=== PATIENT | male | born 1960 | race Caucasian/White ===

== ENCOUNTER 2016-12-20 04:54 | Inpatient (IN) ==
[2016-12-13 19:04] LABS: Appearance,Urine CLEAR; Bilirubin,Urine NEG (NEG); Color,Urine STRAW; Glucose,Urine (UA) NEGATIVE (NEG); Leukocyte Esterase,Urine NEG /uL (NEG); Nitrate,Urine NEG (NEG); Protein,Urine NEG (NEG); Specific Gravity,Urine 1.006 (1.000-1.035); Urine Blood NEG mg/dL (<0.03); Urobilinogen,Urine NEG (NEG)
[2016-12-13 19:06] LABS: Basophils # (Auto) 0.1 K/mcL (0.0-0.3); Basophils % (Auto) 0.8 % (0.0-2.0); Eosinophils # (Auto) 0.1 K/mcL (0.0-0.7); Eosinophils % (Auto) 1.6 % (0.0-7.0); Granulocytes % (Auto) 68.9 % (38.0-78.0); Lymphocytes # (Auto) 1.6 K/mcL (1.5-4.8); Mean Cell Volume 89.7 fL (80.0-100.0); Mean Corpuscular HGB Conc 32.5 g/dL (31.0-36.0); Mean Corpuscular Hemoglobin 29.1 pg (26.0-34.0); Monocytes # (Auto) 0.3 K/mcL (0.1-0.9); Monocytes % (Auto) 4.7 % (1.0-12.0); Platelet Count 245 K/mcL (140-440); RBC 4.93 M/mcL (4.50-5.90); Red Cell Distribution Width 12.9 % (11.5-14.5)
[2016-12-13 19:24] LABS: Blood Urea Nitrogen 15 mg/dl (6-20)
[2016-12-20] MEDS ORDERED: ceFAZolin 1 GM VIAL IV SCH (06:00)
[2016-12-20] MEDS ORDERED: oxyCODONE 10 MG TAB.ER.12H PO SCH (06:00)
[2016-12-20] MEDS ORDERED: ACETAMINOPHEN 500 MG TABLET PO SCH (06:00)
[2016-12-20] MEDS ORDERED: CELECOXIB 200 MG CAPSULE PO SCH (06:00)
[2016-12-20] MEDS ORDERED: PREGABALIN 150 MG CAPSULE PO SCH (06:00)
[2016-12-20] MEDS ORDERED: ONDANSETRON 4 MG/2 ML VIAL IV ONE (07:25)
[2016-12-20] MEDS ORDERED: MIDAZOLAM 5 MG/5 ML VIAL IV ONE (07:25)
[2016-12-20] MEDS ORDERED: LIDOCAINE HCL/PF 100 MG/5 ML SYRINGE IV ONE (07:25)
[2016-12-20] MEDS ORDERED: fentaNYL 100 MCG/2 ML VIAL IV ONE (07:25)
[2016-12-20] MEDS ORDERED: PROPOFOL 200 MG/20 ML VIAL IV ONE (07:25)
[2016-12-20] MEDS ORDERED: ROPIVACAINE HCL/PF 30 ML VIAL IJ ONE (07:25)
[2016-12-20] MEDS ORDERED: DEXAMETHASONE 10 MG/ML VIAL IV ONE (07:25)
[2016-12-20] MEDS ORDERED: TRANEXAMIC ACID 1,000 MG/10 ML VIAL IV ONE (07:25)
[2016-12-20] MEDS ORDERED: GENTAMICIN SULFATE 800 MG/20 ML VIAL IR ONE (07:48)
[2016-12-20] MEDS ORDERED: KETOROLAC 30 MG, ROPIVACAINE HCL/PF 49.5 ML, EPINEPHrine 0.5 MG, 0.9 % SODIUM CHLORIDE ... IJ ONE (08:00)
[2016-12-20] MEDS ORDERED: METOPROLOL TARTRATE 5 MG/5 ML VIAL IV PRN (08:56)
[2016-12-20] MEDS ORDERED: NALOXONE HCL 0.4 MG/ML VIAL IV PRN (08:56)
[2016-12-20] MEDS ORDERED: BENZOCAINE/MENTHOL 1 LOZENGE PO PRN ×2 (08:56→09:23)
[2016-12-20] MEDS ORDERED: ePHEDrine 50 MG/ML AMPUL IV PRN (08:56)
[2016-12-20] MEDS ORDERED: diphenhydrAMINE 50 MG/ML VIAL IV PRN (08:56)
[2016-12-20] MEDS ORDERED: PROMETHAZINE 25 MG/ML VIAL IV PRN (08:56)
[2016-12-20] MEDS ORDERED: METHOCARBAMOL 1,000 MG/10 ML VIAL IV PRN (08:56)
[2016-12-20] MEDS ORDERED: ATROPINE SULFATE 0.4 MG/ML VIAL IV PRN (08:56)
[2016-12-20] MEDS ORDERED: IPRATROPIUM/ALBUTEROL 3 ML AMPUL.NEB NEB PRN (08:56)
[2016-12-20] MEDS ORDERED: FLUMAZENIL 0.1 MG/ML ML IV PRN (08:56)
[2016-12-20] MEDS ORDERED: ONDANSETRON 4 MG/2 ML VIAL IV PRN ×2 (08:56→09:23)
[2016-12-20] MEDS ORDERED: LACTATED RINGERS 1,000 ML IV SCH (09:00)
[2016-12-20] MEDS ORDERED: TEMAZEPAM 15 MG CAPSULE PO PRN (09:23)
[2016-12-20] MEDS ORDERED: MAGNESIUM HYDROXIDE 30 ML ORAL.SUSP PO PRN (09:23)
[2016-12-20] MEDS ORDERED: FLEETS ADULT ENEMA PR PRN (09:23)
[2016-12-20] MEDS ORDERED: ACETAMINOPHEN 325 MG TABLET PO PRN (09:23)
[2016-12-20] MEDS ORDERED: BISACODYL 10 MG SUPP.RECT PR PRN (09:23)
[2016-12-20] MEDS ORDERED: TRANEXAMIC ACID 1,000 MG/10 ML VIAL IV SCH (09:23)
[2016-12-20] MEDS ORDERED: POLYETHYLENE GLYCOL 3350 17 GM PACKET PO PRN (09:23)
[2016-12-20] MEDS ORDERED: SILDENAFIL CITRATE PO PRN (09:25)
[2016-12-20] MEDS ORDERED: HYDROcodone/APAP 10/325MG TABLET PO PRN (09:25)
[2016-12-20] MEDS ORDERED: CYCLOBENZAPRINE 10 MG TABLET PO PRN (09:25)
[2016-12-20] MEDS: fentaNYL 100 MCG/2 ML VIAL IV PRN ×4 (10:00→10:09)
[2016-12-20] MEDS: MEPERIDINE 25 MG/ML SYRINGE IV PRN ×2 (10:00→10:12)
[2016-12-20] MEDS: HYDROmorphone 2 MG/ML SYRINGE IV PRN ×10 (10:05→22:47)
--- NOTE | 2016-12-20 10:17 | Operative Note ---
DATE OF OPERATION: 12/20/2016 PREOPERATIVE DIAGNOSIS: Left knee degenerative arthritis. POSTOPERATIVE DIAGNOSIS: Left knee degenerative arthritis. PROCEDURE: Left total knee arthroplasty using the [employer] robot. SURGEON: Waldo Hill MD REVENUE INTEGRITY ANALYST: Jasmeet Raines PA-C ANESTHESIA: General LMA anesthesia. COMPLICATIONS: None. IMPLANTS: A size 6 femur and size 6 tibial baseplate, 9 mm poly insert, a 36 mm patellar button. The component was cemented and was a cruciate retained design. TOURNIQUET TIME: 1 hour and 16 minutes, which was 76 minutes. ESTIMATED BLOOD LOSS: Minimal. DESCRIPTION OF PROCEDURE: The patient was brought to the operating room and put to sleep with general LMA anesthesia. Once asleep, the patient had the left leg sterilely prepped and draped in the usual sterile fashion. We placed Ioban over the skin. Preop antibiotics and tranexamic acid had been given. Once the left leg had been confirmed as the operative site, we placed two pins above and below the operative site, and made a midline incision, a mid vastus approach. With this we inspected the total joint and this seemed to reveal severe arthritis medial lateral and patellofemoral joint with bone exposed in all three compartments. Once this was done, we then registered the center of hip rotation, medial and lateral malleolus. We registered 30 points on the femur and the tibia and intraarticular pins. We then balanced the knee with varus and valgus stress at 15 degrees and at 95 degrees. This seemed to balance the knee very well. We balanced the gaps and then sized the components. Once this was done, the robot was brought in and made our distal femoral cut, made our posterior chamfer cuts. We then made our anterior cuts which included anterior and posterior cuts and anterior chamfer cut. Once this was done, we then made our tibial cut using the robot, registered the robot and removed the bony fragments. Once the robot was removed from the operative field, we then placed the implants. These were tapped into place at the rotation of the tibial baseplate and this was a little too tight laterally. We then took off a little more bone medial and 1 mm bone lateral to restore 0 degrees of angulation. Once this confirmed the alignment, this revealed a well aligned leg. This balanced both in flexion and extension. We irrigated thoroughly. We then prepared the patella which measured 24 mm. This was cut to 14 and then cemented into place a 36 mm patellar button. We cemented in size 6 femur and size 6 tibial baseplate and a 9 mm poly. Excess cement was removed and the knee was kept at 45 degrees of angulation. We irrigated thoroughly once the tourniquet had been deflated at 76 minutes. We then controlled bleeding, closed the mid vastus approach with #2 FiberWire and a #1 double-armed Maxon. We closed the skin with 2-0 Vicryl and adhesive closure. The patient tolerated this well. GISSELLE:brett Job ID: [id number] Doc ID: [id number] Waldo Hill MD
--- NOTE | 2016-12-20 10:24 | XRay Report ---
CLINICAL INFORMATION: Reason for Exam:Post-Op Total Knee COMPARISON: None. FINDINGS: Total knee prostheses is anatomically aligned. No osseous abnormalities. Soft tissue swelling seen as expected IMPRESSION: Negative Interpreted and Authenticated by: Jose Amanda 12/20/16
[2016-12-20] MEDS: 0.45 % SODIUM CHLORIDE 1,000 ML IV SCH ×3 (11:00→18:25)
[2016-12-20] MEDS: KETOROLAC 15 MG/ML VIAL IV SCH ×2 (12:19→17:24)
[2016-12-20] MEDS: 0.9 % SODIUM CHLORIDE 10 ML SYRINGE IV SCH ×2 (12:57→21:29)
[2016-12-20] MEDS: HYDROcodone/APAP 10/325MG TABLET PO PRN ×2 (17:30→22:55)
[2016-12-20] MEDS: ceFAZolin 1 GM VIAL IV SCH (17:31)
[2016-12-20] MEDS ORDERED: ZOLPIDEM 10 MG TABLET PO PRN (21:00)
[2016-12-20] MEDS ORDERED: SENNOSIDES 1 TABLET PO SCH (21:00)
[2016-12-20] MEDS ORDERED: PANTOPRAZOLE 40 MG TABLET PO SCH (21:00)
[2016-12-20] MEDS ORDERED: traZODone HCL 50 MG TABLET PO PRN (21:00)
[2016-12-20] MEDS: DOCUSATE SODIUM 100 MG CAPSULE PO SCH (21:27)
[2016-12-20] MEDS: ASPIRIN 325 MG ENTERIC COATED TABLET PO SCH (21:27)
[2016-12-20] MEDS: oxyCODONE 10 MG TAB.ER.12H PO SCH (21:27)
[2016-12-20] MEDS: DOXYCYCLINE HYCLATE 100 MG TABLET.ORL PO SCH (21:29)
[2016-12-20] MEDS ORDERED: ceFAZolin 1 GM VIAL ONE (23:38)
[2016-12-21] MEDS: KETOROLAC 15 MG/ML VIAL IV SCH ×3 (00:03→11:11)
[2016-12-21] MEDS: ceFAZolin 1 GM VIAL IV SCH (00:04)
[2016-12-21] MEDS: 0.45 % SODIUM CHLORIDE 1,000 ML IV SCH ×2 (03:14→09:34)
[2016-12-21] MEDS: HYDROcodone/APAP 10/325MG TABLET PO PRN ×4 (03:14→15:29)
[2016-12-21] MEDS: 0.9 % SODIUM CHLORIDE 10 ML SYRINGE IV SCH ×2 (05:37→15:57)
[2016-12-21] MEDS ORDERED: diphenhydrAMINE 25 MG CAPSULE PO PRN ×2 (06:50→07:30)
--- NOTE | 2016-12-21 07:44 | Orthopedic Progress Note ---
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 Chief Complaint: [Pt is stable this morning on post operative day 1 without any significant concerns or complaints. Patients vital signs have remained stable. Patients dressing is dry and exhibits a grossly intact neurovascular and neuromotor exam. Patients 10 point ROS is otherwise negative. ] Objective Vital signs: Vital Signs Temp Pulse Pulse Resp BP BP Pulse Ox 12/21/16 07:41 97 12/21/16 03:20 98.2 F 79 16 122/69 97 12/21/16 02:55 98.2 F 78 12 119/70 96 12/21/16 02:54 96 12/20/16 23:40 95 12/20/16 23:39 99.0 F 93 H 12 108/63 95 12/20/16 21:00 94 12/20/16 20:00 98.8 F 81 12 118/64 94 12/20/16 17:00 98.1 F 91 H 16 112/70 98 12/20/16 15:55 70 94 12/20/16 13:30 98.8 F 78 18 105/62 2 L 12/20/16 12:30 75 16 119/76 96 12/20/16 12:00 97 F L 66 16 109/66 94 12/20/16 11:30 61 18 116/80 98 12/20/16 11:15 60 117/70 12/20/16 11:00 85 18 122/78 12/20/16 10:45 97.4 F L 73 18 105/82 124/73 91 12/20/16 10:35 98.0 F 90 16 105/82 137/70 95 12/20/16 10:20 92 H 18 145/66 96 12/20/16 10:05 98.7 F 94 H 16 105/82 134/74 96 12/20/16 10:00 98.7 F 85 16 105/82 146/77 98 12/20/16 09:55 98.7 F 76 16 105/82 131/90 97 12/20/16 09:50 98.7 F 80 16 105/82 122/72 96 Intake and Output 12/20/16 12/21/16 12/21/16 21:59 05:59 13:59 Intake Total 2918 / 2918 1040 / 1040 800 / 800 Output Total 3200 / 3200 1800 / 1800 325 / 325 Balance -282 / -282 -760 / -760 475 / 475 Intake: IV 927 / 927 Sodium Chloride 0.45% 1, 927 / 927 000 ml @ 125 mls/hr IV . Q8H MICHAEL Rx#:[id number] Oral 1990 1040 / 1040 800 / 800 Output: Urine Catheter Amount 1100 / 1100 Void Amount 2100 / 2100 1800 / 1800 325 / 325 Other: Meal Lunch Percent of Meal Consumed 100% Feeding Ability Independent # Voids 1 1 Weight 202 lb Intake & Output: Intake & Output 12/20/16 12/21/16 12/21/16 21:59 05:59 13:59 Intake Total 2918 / 2918 1040 / 1040 800 / 800 Output Total 3200 / 3200 1800 / 1800 325 / 325 Balance -282 / -282 -760 / -760 475 / 475 Weight 202 lb Intake: IV 927 / 927 Sodium Chloride 0.45% 1, 927 / 927 000 ml @ 125 mls/hr IV . Q8H MICHAEL Rx#:[id number] Oral 1990 1040 / 1040 800 / 800 Output: Urine Catheter Amount 1100 / 1100 Void Amount 2100 / 2100 1800 / 1800 325 / 325 Other: Meal Lunch Percent of Meal Consumed 100% Feeding Ability Independent # Voids 1 1 Incision: Yes healing Incision clean and dry: Yes Dressing: Yes clean, Yes dry Weight bearing status: full Neurological exam IM: Yes motor sensory intact, Yes neurovascular intact Extremities exam IM: Yes Foot pink and warm, Yes neurovascular intact - Labs CBC & BMP: 12/21/16 04:30 12/13/16 16:13 Labs: Orthopedic Labs 12/13/16 16:13 PT 13.3 INR 1.0 APTT 30 12/21/16 12/13/16 04:30 16:13 Hgb 14.4 Hct 34.3 L 44.2 Assessment and Plan (1) Hx of total knee arthroplasty Patient has been educated regarding wound care and dressings, follow up recommendations, and medication use. We will f/u with the patient within 2-3 weeks for wound check. Status: Acute
--- NOTE | 2016-12-21 07:46 | Discharge Summary ---
Ortho Discharge - TKA - Patient Instructions Diet: Regular Diet Activity: activity as tolerated, weight bearing as tolerated Total Knee Protocol: For Total Knee: Start ROM MELE with stationary bike or rocking chair. Work on gaining full extension of knee. Posterior dislocation precautions provided. Hip abductor strengthening and gait training instructions provided. Apply Cryocuff as instructed. Dressing Care: May shower in 2 days Patient Education: Total Knee Replacement (DC) Additional Instructions: CPM for home use - Problem Maintenance (1) Hx of total knee arthroplasty Status: Acute - Follow Up Plan Follow Up Appointments: Jasmeet Raines PA-C [Physician Insurance Agency Owner] - 01/04/17 8:40 am Disposition: Home, Self-Care Prognosis: Good Rehab Potential: Good I certify that the patient requires SNF services: No Overall status at discharge: patient is progressing back to baseline - Orders For Discharge Prescriptions: Aspirin [Ecotrin] 325 mg PO BID #60 tab.ec Docusate Sodium [Colace] 100 mg PO BID #60 capsule HYDROcodone/APAP 10/325MG [[place] 10/325Mg] 1 - 2 tab PO Q4HP PRN #75 tablet PRN Reason: Pain
[2016-12-21] MEDS ORDERED: MULTIVIT,THER IRON,CA,FA & MIN 1 TABLET PO SCH (09:00)
[2016-12-21] MEDS ORDERED: buPROPion 150 MG TAB.SR.12H PO SCH (09:00)
[2016-12-21] MEDS ORDERED: ESCITALOPRAM 20 MG TABLET PO SCH (09:00)
[2016-12-21] MEDS: oxyCODONE 10 MG TAB.ER.12H PO SCH (09:27)
[2016-12-21] MEDS: ASPIRIN 325 MG ENTERIC COATED TABLET PO SCH (09:27)
[2016-12-21] MEDS: DOCUSATE SODIUM 100 MG CAPSULE PO SCH (09:27)
[2016-12-21] MEDS: DOXYCYCLINE HYCLATE 100 MG TABLET.ORL PO SCH (09:33)
== END 2016-12-21 15:50 | disposition home or self-care (01) | DRG 470 ==
LOC: MEDSUR 04:54
PROVIDERS: ADMIT Orthopaedic Surgery; ATTEND Orthopaedic Surgery